=== PATIENT | female | born 1970 | race Caucasian/White ===

== ENCOUNTER → 2023-12-18 14:36 | Outpatient (REF) | payer BC, SELFPAY | LOC: HWWDC 14:36 | PROVIDERS: ATTENDING PHYSICIAN Physician Assistant Medical | DX: Z12.31 Encounter for screening mammogram for malignant neoplasm of breast (principal) | CPT/HCPCS: 77063; 77067 ==

== ENCOUNTER → 2024-02-18 13:02 | Outpatient (REF) | payer BC, SELFPAY | LOC: HWCARD 13:02 | PROVIDERS: ATTENDING PHYSICIAN Orthopaedic Surgery; FAMILY PHYSICIAN Physician Assistant Medical | DX: Z01.818 Encounter for other preprocedural examination (principal) | CPT/HCPCS: 93005 ==

== ENCOUNTER → 2025-01-22 10:22 | Outpatient (REF) | payer BC, SELFPAY | LOC: HWRAD 10:22 | PROVIDERS: ATTENDING PHYSICIAN Obstetrics & Gynecology; FAMILY PHYSICIAN Physician Assistant Medical | DX: N93.9 Abnormal uterine and vaginal bleeding, unspecified (principal) | CPT/HCPCS: 76830; 76856 ==

== ENCOUNTER 2025-09-15 06:22 | Day surgery (SDC) | payer BC, SELFPAY ==
[2025-09-10 09:12] LABS: Hematocrit 43.9 % (37.0-47.0); Hemoglobin 14.5 g/dL (12.0-16.0); Mean Corp Hgb Conc. 33.0 g/dL (33.0-37.0); Mean Corpuscular Volume 90.5 fL (81.0-99.0); Nucleated Red Blood Cells % 0 %; Platelet Count 251 10^3/uL (130-400); Red Cell Dist. Width 12.9 % (11.5-14.5)
[2025-09-10 09:20] LABS: INR 0.97; PT 13.4 Sec (11.4-14.6)
[2025-09-10 09:21] LABS: APTT 27.7 Sec (23.4-35.0)
[2025-09-10 13:55] VITALS: BMI 34.0
[2025-09-15] VITALS (8 sets, daily range): BP systolic 111–132; BP diastolic 65–87; BMI 34.0
[2025-09-15] MEDS: TYLENOL 1000 MG PO (12:48)
[2025-09-15] MEDS: NORMOSOL-R/PLASMALYTE-A 1000 IV (12:58)
[2025-09-15] MEDS: DILAUDID 0.25 MG IV (15:24)
== END 2025-09-15 16:50 | disposition home or self-care (01) ==
LOC: SDS 06:22
PROVIDERS: ATTENDING PHYSICIAN Obstetrics & Gynecology; FAMILY PHYSICIAN Physician Assistant Medical
DX: N93.9 Abnormal uterine and vaginal bleeding, unspecified (principal); N84.0 Polyp of corpus uteri
CPT/HCPCS: 58558; 85025; 85610; 85730; 88305; 93005